=== PATIENT | female | born 1985 | race Caucasian/White ===

== ENCOUNTER 2019-12-03 05:50 | Inpatient (IN) | payer OTHER, SELFPAY ==
[2019-12-03] VITALS (181 sets, daily range): BP systolic 96–157; BP diastolic 60–104; PULSE 63–150; TEMP 36.6–37.3; O2SAT 85–100; BMI 27.6
[2019-12-03 06:40] LABS: Basophils Percent Auto 0.5 % (0.2-1.2); Eosinophils Absolute Auto 0.1 K/mm3 (0-0.3); Eosinophils Percent Auto 1.5 % (0-4.4); Hematocrit 34.2 % (37.0-47.0); Hemoglobin 11.2 g/dL (12.0-15.0); Immature Granulocyte Absolute 0.01 K/mm3 (0.00-0.031); Immature Granulocyte Percent A 0.2 % (0-0.5); Lymphocytes Absolute Auto 1.75 K/mm3 (0.9-3.2); Lymphocytes Percent Auto 26.5 % (18.3-44.2); Mean Corpuscular HGB Conc 32.7 g/dl (32-36); Mean Corpuscular Hemoglobin 28.1 pg (26-34); Mean Corpuscular Volume 85.7 fl (80-100); Monocytes Absolute Auto 0.4 K/mm3 (0.1-0.6); Monocytes Percent Auto 6.5 % (2.6-8.5); Neutrophils Absolute Auto 4.3 K/mm3 (1.3-6.7); Neutrophils Percent Auto 64.8 % (45.5-73.1); Platelet Count Result 193 k/mm3 (150-375); Red Blood Count 3.99 M/mm3 (4.2-5.4); Red Cell Distribution Width 12.5 % (11.5-14.5); White Blood Count 6.6 K/mm3 (4.5-10.0)
[2019-12-03] MEDS: LACTATED RINGERS 1,000 ML 125 ML IV CONT ×4 (06:48→23:47)
[2019-12-03] MEDS: OXYTOCIN 30 UNITS/NS 500 ML 30 UNITS/500 ML BAG 6 UNITS IV CONT (06:49)
--- NOTE | 2019-12-03 06:50 | LDADM ---
This patient, Reyna Milian, was admitted to Labor/Delivery/Recovery 104 on 12/03/19 at 05:50. Plans for labor, pain management and were discussed with patient. Patient/family oriented to hospital policies and general routines including ID bracelet, bed and alarms, visiting hours, pain management, procedures, bathroom and other care routines, personal items, smoking policy, room service/diet and guest tray routines, security routines, and visiting hours. Patient/Family are encouraged to report perceived risks to care and to ask questions if they do not understand what they are told or what they should do. See OBIX for further documentation.
--- NOTE | 2019-12-03 06:55 | PM.IMHP ---
H&P: HPI History of Present Illness Chief complaint: Induction Narrative: Reyna Milian is a 34 yo @ 40.2wks who presents for scheduled induction of labor. She reports pressure, mild contractions/back pains. Good movement. No LOF or VB. Review of Systems Constitutional: Constitutional: Denies chills and Denies fatigue Eyes: Eyes: Denies blurry vision Cardiovascular: Cardiovascular: Denies chest pain and Denies palpitations Respiratory: Respiratory: Denies cough and Denies dyspnea Gastrointestinal: Gastrointestinal: Denies nausea and Denies vomiting Genitourinary: Genitourinary: Denies vaginal discharge Musculoskeletal: Musculoskeletal: Reports back pain Neurologic: Denies headache(s) Psychiatric: Psychiatric: Denies anxiety and Denies depression [facility] Family History Family History Sibling Oral cancer Mother Thyroid cancer Social History Social History Substance use: never Gender identity (if verbalized by the patient): Female Spiritual care concerns: No Meds Home Medications and Allergies Home Medications Medication Instructions Recorded Confirmed Type PNV cmb#95-ferrous fumarate-FA 1 tablet PO DAILY 11/02/19 11/02/19 History [] Allergies Allergy/AdvReac Type Severity Reaction Status Date / Time No Known Allergies Allergy Verified 04/13/19 14:40 Vital Signs Vital Signs - 24 hr 12/03/19 06:23 12/03/19 06:45 Pulse Rate 101 H 86 Blood Pressure 115/85 115/77 Exam Const: General: comfortable and no acute distress Resp: Effort & Inspection: normal respiratory effort Cardio: Rate: regular rate GI: GI Palp: Yes Soft to palpation : Other: FHT's: 130's/ mod ernestina/ + accels/ no decels - cat 1 TOCO: irregular ctx's q5-7min Membranes: intact Cervix: 1-2/-2 Skin: General skin exam: normal color Neuro: Speech: normal speech Extrem: General: normal to inspection Psych: Affect: normal affect H&P: Results Labs Labs: Short CBC 12/03/19 Range/Units 06:34 WBC 6.6 (4.5-10.0) K/mm3 Hgb 11.2 L (12.0-15.0) g/dL Hct 34.2 L (37.0-47.0) % Plt Count 193 (150-375) k/mm3 Assessment and Plan Assessment and plan (1) Encounter for induction of labor: Code(s): Z34.90 - Encounter for supervision of normal , unspecified, unspecified trimester Status: Acute Additional Plan - Admit to L&D - Vitals and labs WNL - Continuous monitoring; FHT category 1 - Pitocin per protocol - Anesthesia PRN pain - GBS negative
--- NOTE | 2019-12-03 07:10 | P.PNAN_ITS ---
Anes - Eval Pre Procedure Procedure: Labor Epidural Date/Time: 12/03/19 07:10 Surgeon: Dr. Carlton Preop Diagnosis: Labor Pain Pre Op Diagnosis: Induction Patient Data Age: 34 Gender: F Height: Weight: Last Vital Signs Pulse 75 12/03/19 07:00 BP 117/75 12/03/19 07:00 Allergies Allergy/AdvReac Type Severity Reaction Status Date / Time No Known Allergies Allergy Verified 04/13/19 14:40 Home Medications Medication Instructions Recorded Confirmed Type PNV cmb#95-ferrous fumarate-FA 1 tablet PO DAILY 11/02/19 11/02/19 History [] Laboratory Tests 12/03/19 12/03/19 06:34 06:34 WBC 6.6 K/mm3 K/mm3 (4.5-10.0) RBC 3.99 M/mm3 L M/mm3 (4.2-5.4) Hgb 11.2 g/dL L g/dL (12.0-15.0) Hct 34.2 % L % (37.0-47.0) MCV 85.7 fl fl (80-100) MCH 28.1 pg pg (26-34) MCHC 32.7 g/dl g/dl (32-36) RDW 12.5 % % (11.5-14.5) Plt Count 193 k/mm3 k/mm3 (150-375) MPV 10.0 fl fl (7.4-10.4) Immature Gran % (Auto) 0.2 % % (0-0.5) Neut % (Auto) 64.8 % % (45.5-73.1) Lymph % (Auto) 26.5 % % (18.3-44.2) [place] % (Auto) 6.5 % % (2.6-8.5) Eos % (Auto) 1.5 % % (0-4.4) Baso % (Auto) 0.5 % % (0.2-1.2) Lymph # (Auto) 1.75 K/mm3 K/mm3 (0.9-3.2) [place] # (Auto) 0.4 K/mm3 K/mm3 (0.1-0.6) Eos # (Auto) 0.1 K/mm3 K/mm3 (0-0.3) Baso # (Auto) 0.0 K/mm3 K/mm3 (0.0-0.1) Abs Immat Gran (auto) 0.01 K/mm3 K/mm3 (0.00-0.031) Absolute Neuts (auto) 4.3 K/mm3 K/mm3 (1.3-6.7) Absolute Nucleated RBC 0.0 K/mm3 K/mm3 (0.0-0.012) Nucleated RBC % 0.0 % % (0.0-0.2) RPR Pending : gestational age (, BUBBA 12/01/19) HCG: positive Patient hx anesthesia problems: none Family hx anesthesia problems: none PMFSH Family History Family History Sibling Oral cancer Mother Thyroid cancer Social History Social History Substance use: never Gender identity (if verbalized by the patient): Female Spiritual care concerns: No Exam Day of Procedure 12/03/19 07:10 Patient weight: normal Heart: regular rate and rhythm Lungs: normal air movement Airway: Mallampati scale class II Neurological: alert and oriented
--- NOTE | 2019-12-03 09:54 | PM.OBPNLAB ---
Pain Control Date/time seen: 12/03/19 09:54 S: No complaints; mild pain O: VSS Cervix: 2.5/70/-3 AROM, clear 0940 FHT's: 130's/ mod ernestina/ + accels/ no decels - cat 1 TOCO: ctx's q2-3min Pit: 16mU A/P: Early IOL Anesthesia PRN pain Continue pitocin per protocol Continuous monitoring; heart rate reassuring
--- NOTE | 2019-12-03 22:25 | PM.OBPNLAB ---
Pain Control Date/time seen: 12/03/19 22:25 S: feeling better since epidural but has had multiple top offs and feeling right sided pain again O: VSS Cervix: 7/70/-1 on my exam; previously called 9cm (initially called 7cm at 1630) FHT's: 130's/ mod ernestina/ + accels/ early decels, occasional variables - cat 2 but overall reassuring IUPC: ctx's q2 min -- ~180-200mvu AROM, clear @ 0940 on 12/03/19 Pit: 24mu A/P: Protracted labor course - head feels asynclytic with mild caput; attempted to be rotated (currently ROP) - Pt w/ IUPC in place and oxytocin infusion; contractions have been inadequate - Has been ruptured on pitocin for 13hrs - Pt has not met criteria for AAP but will soon; pt desires vaginal delivery-- will re-examine in 1-2 hours. If not fully dilated, will proceed with pLTCS. Pt informed of protracted labor course and risks of AAP including distress, hemorrhage, and infection (chorio). Pt agrees with plan. - Anesthesia for pain control
[2019-12-04] VITALS (63 sets, daily range): BP systolic 93–213; BP diastolic 50–138; PULSE 60–113; RESP 10–21; TEMP 36.3–37.4; O2SAT 93–100
--- NOTE | 2019-12-04 00:31 | PM.OBPNLAB ---
Pain Control Date/time seen: 12/04/19 00:31 Pain control: epidural Pelvic Exam Dilation (cm): 7 Effacement (%): 70 station: -1 Amniotic membrane status: Ruptured (since 0940 on 12/03/19) Contractions Monitor mode: Internal Contraction frequency: 2 Contraction pattern: Regular (but not adequate) Status status: Category l Assessment and Plan Pitocin rate (mU/min): 24 Plan: (due to arrest of active phase)
--- NOTE | 2019-12-04 02:08 | PM.OBPRVD ---
OB - Delivery Note Procedure Delivery date: 12/04/19 Procedure: Procedures Operation Date: 12/04/19 00:30 Actual Procedures Side Surgeon p Section Janie Carlton MD Intrapartal events: Prolonged Active Phase Induction method: per pitocin protocol Delivery augmentation: rupture of membranes Delivery monitor: external FHT and internal uterine Route of delivery: Estimated blood loss (mL): 650 Anesthesia type: Epidural Disposition: PACU Complications: None Narrative: Patient was taken operating room where epidural anesthesia was found to be in adequate therefore spinal anesthesia was placed. she was then prepped and draped in the sterile fashion. she received 2 g Ancef and a time-out was performed. a Pfannenstiel skin incision was made and carried down to the underlying fascia using Bovie cautery. the fascia was nicked on either side and midline using Bovie cautery and extended laterally and superiorly. the edges of the fascia were elevated using Reji clamps and the underlying rectus muscles were dissected away, this occurred superiorly and inferiorly. the rectus muscles were then in the midline and the peritoneum was entered bluntly. once adequate exposure was obtained and Luiz retractor was placed within the abdomen. a bladder flap was created and a transverse incision was made on the uterus. the occiput was elevated to the hysterotomy and with gentle pressure the shoulders and body delivered without complications. the infant had spontaneous cry and the mouth and nose were bulb suctioned. the cord was clamped and cut and the infant was handed off to the waiting pediatric team. a segment of cord was collected for cord gases and the remaining cord blood was collected for typing. with Pitocin running and gentle traction on the umbilical cord the placenta delivered without complications. the uterus was then cleared of all clots and debris using a clean moist lap. the hysterotomy was then repaired in a running fashion using 0 Vicryl. bleeding was noted from the right aspect of the hysterotomy therefore a [id number] using 0 Vicryl was placed and good hemostasis was noted. a 2nd layer imbricating suture was then placed using 0 Vicryl and the hysterotomy incision was noted to be hemostatic. uterine massage was performed and good tone was noted. the bilateral adnexa were examined and found to be within normal limits. the gutters were then cleared of all clots and debris using clean laps. the hysterotomy was once again reinspected and noted to be hemostatic. the Luiz retractor was removed from the abdomen. the peritoneum rectus muscles and rectus fascia were examined and made hemostatic with Bovie cautery. the fascia was reapproximated using 0 Vicryl suture in a running fashion. and the subcutaneous tissue was irrigated and then made hemostatic with Bovie cautery. Jone's fascia was then reapproximated using a 2-0 Vicryl in a running fashion. the skin was reapproximated using 4 Monocryl in a subcuticular fashion. the patient tolerated the procedure well. sponge lap needle instrument counts were correct at the end of the procedure and was taken recovery in a stable condition. [place] Baby Date of : 12/04/19 Time of : 01:33 Weeks of gestation at delivery: 40 gender: Male Weight (pounds): 8 Weight (ounces): 7 presentation: vertex position: Left Occiput Transverse Placenta delivery description: Manual Removal cord vessel description: 3 Vessels score one minute: 8 score five minutes: 9
[2019-12-04] MEDS: OXYTOCIN 30 UNITS/NS 500 ML 30 UNITS/500 ML BAG 125 UNITS IV CONT (04:30)
--- NOTE | 2019-12-04 04:36 | OBPPTRN ---
Patient transferred to post room #285 via wheelchair. Support person present. Oriented to unit, room, information board, rooming in, admission packet and security measures. Patient verbalizes understanding. with patient.
[2019-12-04] MEDS: DEXTROSE 5%/0.45% SOD CHL 1,000 ML 125 ML IV CONT (08:41)
--- NOTE | 2019-12-04 09:10 | PC.NURSE ---
Mother called out for assist with feeding, reporting is sleepy and not waking to feed. Demonstrated stimulation techniques to wake infant for feeding, awake with feeding cues noted. Assisted with infant to breast. Reviewed positioning/alignment in cross cradle, holding breast in U hold and guided asymmetrical latch on. Discussed rational fore ach. Infant was able to latch correctly. Infant nursed eagerly, with steady draws and frequent swallowing noted. some pausing noted. Reviewed signs of a correct latch, effective nursing and suck swallow ratio. Infant was able to maintain latch without discomfort to mother. Nipple care reviewed. Instructed mother to call out for RN assistance if she is unable to latch infant for feeding or she has discomfort with nursing. Instructed feeding should be initiated three hours from start of last feeding or if feeding cues are noted before. Mother voiced understanding of information shared. Reviewed infant feeding cues, frequencies, duration of feedings, feeding elimination flow sheet, and signs of adequate intake. Suggested mother stimulate during feeding to keep infant awake and nursing effectively for increased intake and assist in maintaining deep latch.
--- NOTE | 2019-12-04 09:10 | PCDIET ---
Consulted with patient, mother reports infant is sleepy and is concerned is not getting enough to eat. Reviewed signs of adequate intake, and infant is feeding as required,has had required output and weight loss WNL. Reviewed feeding cues, frequencies, duration of feedings, feeding elimination flow sheet, and signs of adequate intake. Demonstrated stimulation techniques to wake for feeding. Assisted with infant to breast. Reviewed positioning/alignment in cross cradle, holding breast in U hold and guided asymmetrical latch on. Discussed rational for each. Infant was able to latch correctly with first attempt. nursed eagerly with steady draws and frequent swallowing for bursts followed with long pausing. Reviewed signs of a correct latch, effective nursing and suck swallow ratio. Infant was able to maintain latch without discomfort to mother. Nipple care reviewed. Suggested to stimulate during entire feeding to keep awake and feeding effectively for increased intake and assist maintaining deep latch. Instructed mother to call out for RN assistance if she is unable to latch infant for feeding or she has discomfort with nursing. Instructed feeding should be initiated three hours from start of last feeding or if feeding cues are noted before. Mother voiced understanding of information shared.
[2019-12-04 09:47] LABS: Rapid Plasma Reagin Non-Reactive (NonReactive)
[2019-12-04] MEDS: DOCUSATE SODIUM 100 MG CAPSULE PO ×2 (11:41→16:06)
[2019-12-04] MEDS: MULTIVIT/MIN/PREN/FOL AC/IRON TABLET 1 TAB PO (11:41)
[2019-12-04] MEDS: KETOROLAC 30 MG/ML VIAL (*BKC) IV PUSH ×2 (11:42→17:49)
[2019-12-05 05:41] LABS: Basophils Percent Auto 0.3 % (0.2-1.2); Eosinophils Absolute Auto 0.1 K/mm3 (0-0.3); Eosinophils Percent Auto 1.1 % (0-4.4); Hematocrit 24.2 % (37.0-47.0); Hemoglobin 7.7 g/dL (12.0-15.0); Immature Granulocyte Absolute 0.06 K/mm3 (0.00-0.031); Immature Granulocyte Percent A 0.6 % (0-0.5); Lymphocytes Absolute Auto 1.72 K/mm3 (0.9-3.2); Mean Corpuscular HGB Conc 31.8 g/dl (32-36); Mean Corpuscular Hemoglobin 28.3 pg (26-34); Mean Platelet Volume 10.4 fl (7.4-10.4); Monocytes Absolute Auto 0.8 K/mm3 (0.1-0.6); Monocytes Percent Auto 7.3 % (2.6-8.5); Neutrophils Percent Auto 74.7 % (45.5-73.1); Platelet Count Result 160 k/mm3 (150-375); Red Blood Count 2.72 M/mm3 (4.2-5.4); Red Cell Distribution Width 12.9 % (11.5-14.5); White Blood Count 10.7 K/mm3 (4.5-10.0)
[2019-12-05] MEDS: POLYSACCHARIDE IRON COMPLEX 150 MG CAPSULE PO ×2 (08:14→16:51)
[2019-12-05] MEDS: MULTIVIT/MIN/PREN/FOL AC/IRON TABLET 1 TAB PO (08:14)
[2019-12-05] MEDS: DOCUSATE SODIUM 100 MG CAPSULE PO ×2 (08:14→16:51)
[2019-12-05] MEDS: IBUPROFEN 600 MG TABLET PO ×2 (08:15→16:51)
[2019-12-05 08:20] VITALS: BP 105/74; PULSE 89; RESP 16; TEMP 36.9; O2SAT 99
--- NOTE | 2019-12-05 08:22 | P.PNAN_ITS ---
Anes-Prog Note L&D Date/Time: 12/05/19 08:22 Comfortable throughout: labor and section Neuraxial method: spinal (pt had epidural during labor that only provided one- sided relief.pt stated she received a spinal for the c/s that provided complete relief for surgery.) Epidural/Spinal procedure site: clean & non-tender Neuro status: Neuro function grossly intact. Cardiovascular status: normal Respiratory status: normal Airway patency: baseline Mental status: baseline Post-Op hydration status: normal Vital Signs: Last Vital Signs Temp 36.8 C 12/04/19 21:00 Pulse 74 12/04/19 21:00 Resp 16 12/04/19 21:00 BP 111/69 12/04/19 21:00 Pulse Ox 100 12/04/19 21:00 I/O: Intake & Output 12/04/19 12/05/19 12/05/19 23:59 07:59 15:59 Output Total 400 Balance -400 Post-procedural complaints: none Patient feedback: Patient satisfied with anesthetic care.
--- NOTE | 2019-12-05 08:24 | WPDANLDNPN2 ---
Anes-Prog Note L&D-Neuraxial Date/Time: 12/05/19 08:24 Neuraxial medications: intrathecal PF morphine Opiod-related complaints: none Patient feedback: Patient satisfied with post-operative pain management.
--- NOTE | 2019-12-05 13:29 | PM.OBPNVD ---
OB - PN: Subj Subjective Date/time seen: 12/05/19 13:29 Reyna is a 34yo now P1001 s/p pLTCS 2/2 AAP, POD#1 Today, Reyna states she is feeling well. Her pain is controlled with pain meds. She is tolerating regular diet w/o issue. She is voiding and passing flatus. She is ambulating w/o s/sx of anemia. She is breast feeding. She would like her son to be circumcised. OB - PN: Obj Data Labs CBC & Chem 7: 12/05/19 04:21 Labs: Laboratory Results - last 24 hr 12/05/19 04:21 WBC 10.7 H RBC 2.72 L Hgb 7.7 L D Hct 24.2 L MCV 89.0 MCH 28.3 MCHC 31.8 L RDW 12.9 Plt Count 160 MPV 10.4 Immature Gran % (Auto) 0.6 H Neut % (Auto) 74.7 H Lymph % (Auto) 16.0 L [place] % (Auto) 7.3 Eos % (Auto) 1.1 Baso % (Auto) 0.3 Lymph # (Auto) 1.72 [place] # (Auto) 0.8 H Eos # (Auto) 0.1 Baso # (Auto) 0.0 Abs Immat Gran (auto) 0.06 H Absolute Neuts (auto) 8.0 H Absolute Nucleated RBC 0.0 Nucleated RBC % 0.0 OB - PN A/P Assessment and Plan (1) S/P section: Code(s): Z98.891 - History of uterine scar from previous surgery Status: Acute (2) Acute anemia: Code(s): D64.9 - Anemia, unspecified Status: Acute Plan day: 1 Plan: routine care Comments: - meeting all milestones - vitals stable; pt w/o symptoms of anemia-- acute anemia from blood loss during c/s. continue iron - likely discharge home tomorrow - s/p son's circumcision Time Spent With Patient Time: Total time spent is greater than 50% in coordination of care (as documented) at patient's floor/unit and/or counseling patient: Review of Systems Constitutional: Constitutional: Denies body ache(s) and Denies chills Cardiovascular: Cardiovascular: Denies rapid heart rate Respiratory: Respiratory: Denies cough and Denies dyspnea Gastrointestinal: Gastrointestinal: Denies nausea and Denies vomiting Genitourinary: Genitourinary: Reports pelvic pain Neurologic: Denies headache(s) Exam Const: General: comfortable, alert and awake Orientation/consciousness: patient oriented x3 Resp: Effort & Inspection: normal respiratory effort Auscultation: clear to auscultation bilaterally Cardio: Rate: regular rate GI: Auscultation: normal bowel sounds Other: non-distended, soft, appropriately tender : Other: Pfannenstiel incision c/d/i covered with clean dressing (small amount of old blood located centrally). Fundus firm below umbilicus Psych: Appearance: grossly normal Affect: normal affect Attitude: cooperative
--- NOTE | 2019-12-05 16:20 | PC.NURSE ---
Upon entering mother has to breast using correct positioning/alignment in cross cradle, holding breast in U hold and asymmetrical latch on. Infant was latched correctly. nursed eagerly, with steady draws and frequent swallowing noted. Reviewed signs of a correct latch, effective nursing and suck swallow ratio. Infant was able to maintain latch without discomfort to mother. Nipple care reviewed. Mother stimulated when pausing noted. Instructed mother to call out for RN assistance if she is unable to latch infant for feeding or she has discomfort with nursing. Instructed feeding should be initiated three hours from start of last feeding or if feeding cues are noted before. Mother voiced understanding of information shared.
[2019-12-05 20:00] VITALS: BP 110/73; PULSE 88; RESP 16; TEMP 37.1; O2SAT 98
[2019-12-06 08:35] VITALS: BP 131/81; PULSE 93; RESP 18; TEMP 37.2; O2SAT 100
[2019-12-06] MEDS: DOCUSATE SODIUM 100 MG CAPSULE PO (09:08)
[2019-12-06] MEDS: IBUPROFEN 600 MG TABLET PO (09:08)
[2019-12-06] MEDS: MULTIVIT/MIN/PREN/FOL AC/IRON TABLET 1 TAB PO (09:08)
[2019-12-06] MEDS: BISACODYL 10 MG SUPPOSITORY RECTAL (09:08)
[2019-12-06] MEDS: POLYSACCHARIDE IRON COMPLEX 150 MG CAPSULE PO (09:08)
--- NOTE | 2019-12-06 10:10 | PC.NURSE ---
Observed mother is able to independently latch with appropriate positioning/alignment. She denies any nipple discomfort, is feeding as required and waking infant to feed if needed. has had at least 8 effective feedings in the past 24 hours, and is currently meeting outcomes for weight, output, jaundice and feeding frequencies. Mother states she feels confident to continue effective at home. Mother is concerned is not above required # for output and will freq. continue to root after a 50 minute feeding. Discussed supplementation if mother should choose, advised to breastfeed first and pace 15-20 mls if she feels infant is not satisfied or has less than required output. Reviewed transition to breast milk, signs of adequate intake, and engorgement/relief. Instructed to call ICP if intake/output less than required. Reviewed regular medications mother is taking. Information provided per [facility]. Reviewed community resources on the [facility] website and in the Mom/Baby guide. Information on outpatient services provided. Mother has no further questions at this time.
[2019-12-06] MEDS: polyethylene glycoL 3350 17 GM POWD.PACK PO (12:30)
[2019-12-07 14:12] VITALS: BP 124/85; PULSE 98; RESP 16; TEMP 37.2; O2SAT 98
--- NOTE | 2019-12-17 11:09 | PM.OBDSVD ---
DS: Admitting Diagnosis Admitting Diagnosis Admitting Diagnosis: Encounter for supervision of normal , unspecified, third trimester DS: Discharge Diagnosis Discharge Diagnosis (1) Arrested active phase of labor: Code(s): O62.1 - Secondary uterine inertia Status: Acute (2) S/P section: Code(s): Z98.891 - History of uterine scar from previous surgery Status: Acute OB - DS: Summary OB Procedures : None OB Procedures Intrapartum: OB Procedures: : None Peripartum Data Infant Delivery Method: Section Procedures: Procedures Operation Date: 12/04/19 00:30 Actual Procedures Side Surgeon p Section Janie Carlton MD complications: none [place] 1: Gender: Male Disposition of : home Status at Discharge Functional status at discharge: independent ambulation Time Spent with Patient Time attestation: Total time spent providing and/or coordinating discharge services: Exam Const: General: comfortable, no acute distress, alert and awake Orientation/consciousness: patient oriented x3 Resp: Effort & Inspection: normal respiratory effort Auscultation: clear to auscultation bilaterally Cardio: Rate: regular rate GI: Inspection: non-distended GI Palp: Yes Soft to palpation and No Tenderness to palpation present (GI) Auscultation: normal bowel sounds Other: pfannenstiel incision covered with clean dressing Psych: Appearance: grossly normal Affect: normal affect Attitude: cooperative Judgement: Good judgement present (Psych) Discharge Plan Discharge Attending physician on discharge: Janie Carlton Discharging Clinician: Janie Carlton Anticipated Discharge Date/Time: 12/06/19 16:00 Patient Disposition: Home, Self-Care Activity: pelvic rest Diet: regular Wound Care Instructions: incision open to air Discharge Instructions: Education: Mom and Baby Guide Given to: Mother Follow-Up: Call your delivering provider's office for an appointment to be seen in: 4 Weeks Mom and baby should come to the [facility] for the follow-up appointment. Appointment Date/Time: December 07, 2019 at 2:30 pm What to expect at your follow-up visit: Blood Pressure Check Physical Assessment Call [phone] if you are unable to keep your appointment time. BREAST CARE: 1. Wear a snug supportive bra. 2. For engorgement discomfort: Breast Feeding: A. Apply warm moist washcloths B. Express milk as needed to relieve engorgement C. Wear loose clothing Bottle Feeding: A. May apply ice packs 3. For sore nipples: A. Identify correct latch-on B. Apply warm moist washcloths before and after nursing C. Air dry nipples after nursing D. May apply Lansinoh cream to nipples ABDOMINAL INCISION: (if applicable) 1. Allow incision to air dry 2. Do NOT use lotions for powders on your incision 3. When showering, allow soap and water to run over the incision, but do not wash incision EPISIOTOMY/PERINEAL CARE: 1. Until bleeding stops, use your darian bottle after urinating 2. Change your pad frequently throughout the day 3. You may take sitz baths several times a day (fill your bathtub with warm water and soak for 20 minutes.) Do NOT bathe in the water 4. No tub baths until seen by your physician - You may shower ACTIVITY: 1. Rest as much as possible. 2. Do not exercise or lift anything heavier than your baby (such as laundry or other children.) 3. Avoid stairs or driving as much as possible. 4. Do not put anything into the vagina. No douching, tampons, or sexual activity until seen by physician. NOTIFY PHYSICIAN IF YOU HAVE ANY QUESTIONS OR IF ANY OF THE FOLLOWING SYMPTOMS OCCUR: 1. If your episiotomy or incision becomes red, swollen, or more painful than what you have experienced in the hosp
== END 2019-12-06 13:47 | disposition home or self-care (01) | DRG 787 ==
LOC: ANHLDR 12-04 00:42 → ANHOB2 12-04 05:00
PROVIDERS: Admitting Provider Obstetrics & Gynecology; PCP Nurse Practitioner Adult Health; Visit Provider Obstetrics & Gynecology
PROC: 10D00Z1 Extraction of Products of Conception, Low, Open Approach (ICD-10-PCS; CPT 59514; principal; 2019-12-04 00:30)
DX: O99.02 Anemia complicating childbirth (principal); D62 Acute posthemorrhagic anemia; Z37.0 Single live birth; Z3A.40 40 weeks gestation of pregnancy
CPT/HCPCS: 36415; 85025; 86592; 86850; 86900; 86901; A9270; J0131; J0690; J1885; J2274; J2370; J2405; J2590; J2795; J3010; J7120

== ENCOUNTER 2021-06-24 11:44 | Emergency (ER) | payer BC, SELFPAY ==
--- NOTE | ~2021-06-24 | US_ITS ---
EXAMINATION: US OB <= 14 weeks fetus EXAM DATE: 06/24/2021 13:04 INDICATION: Lower abd cramping, vaginal bleeding, 10 weeks . 1st trimester. TECHNIQUE: Pelvic obstetrical transabdominal sonogram was performed by a technologist. There are mu ltiple grayscale and Doppler images available for interpretation. There are no earlier studies of th is gestation for comparison. FINDINGS: Uterus measures 11.2 x 9.4 x 6.8 cm. There is intrauterine gestation sac. pole with heart rate confirmed at 166 beats per minute. The 3.6 cm crown-rump length corresponds to estimated gestational age by ultrasound of 10 weeks 4 days, estimated date of confinement 01/16/2022. There is no sonographic evidence of subchorionic hemorrhage. Ovaries not identified. IMPRESSION: Live intrauterine gestation, age by ultrasound 10 weeks 4 days. Reviewed, dictated and finalized at location A. [employer]
[2021-06-24 11:48] VITALS: BP 126/86; PULSE 85; RESP 22; TEMP 36.8; O2SAT 100
[2021-06-24 12:16] LABS: Basophils Percent Auto 0.5 % (0.2-1.2); Eosinophils Absolute Auto 0.2 K/mm3 (0-0.3); Eosinophils Percent Auto 2.2 % (0-4.4); Hematocrit 45.1 % (37.0-47.0); Hemoglobin 15.3 g/dL (12.0-15.0); Immature Granulocyte Absolute 0.02 K/mm3 (0.00-0.031); Immature Granulocyte Percent A 0.2 % (0-0.5); Lymphocytes Absolute Auto 2.21 K/mm3 (0.9-3.2); Lymphocytes Percent Auto 27.6 % (18.3-44.2); Mean Corpuscular HGB Conc 33.9 g/dl (32-36); Mean Corpuscular Hemoglobin 29.8 pg (26-34); Mean Corpuscular Volume 87.7 fl (80-100); Mean Platelet Volume 9.8 fl (7.4-10.4); Monocytes Absolute Auto 0.4 K/mm3 (0.1-0.6); Monocytes Percent Auto 5.4 % (2.6-8.5); Neutrophils Absolute Auto 5.1 K/mm3 (1.3-6.7); Neutrophils Percent Auto 64.1 % (45.5-73.1); Platelet Count Result 291 k/mm3 (150-375); Red Blood Count 5.14 M/mm3 (4.2-5.4)
--- NOTE | 2021-06-24 12:33 | ED.FEMALEGU ---
HPI - Female Genitourinary General Chief complaint: Vaginal Bleeding Stated complaint: Vaginal bleed Time Seen by Provider: 06/24/21 12:10 Source: patient Mode of arrival: ambulatory Limitations: no limitations History of Present Illness HPI Narrative: Patient is a 36-year-old female, at 10 weeks complaining of vaginal spotting that started this morning. Patient states that she was having lower abdominal cramping last night. Patient denies any chest pain, shortness of breath, dysuria, or vaginal discharge. Related Data Home Medications Medication Instructions Recorded Confirmed PNV cmb#95-ferrous fumarate-FA 1 tablet PO DAILY 11/02/19 11/02/19 [] Allergies Allergy/AdvReac Type Severity Reaction Status Date / Time No Known Allergies Allergy Verified 06/24/21 12:02 Review of Systems Review of Systems: All systems reviewed & are unremarkable except as noted in HPI and below Constitutional: Constitutional: Denies body ache(s), Denies chills, Denies excessive sweating, Denies fatigue, Denies fever(s), Denies headache(s), Denies lethargy, Denies malaise, Denies weakness and Denies weight loss Eyes: Eyes: Denies blurry vision, Denies change in vision and Denies loss of vision ENT: Denies dizziness, Denies ear discharge, Denies headache(s), Denies lip swelling, Denies epistaxis, Denies nasal congestion, Denies neck pain, Denies throat swelling and Denies tongue swelling Cardiovascular: Cardiovascular: Denies chest pain, Denies chest pain at rest, Denies chest pain with activity, Denies diaphoresis, Denies rapid heart rate, Denies edema, Denies irregular heart rhythm, Denies lightheadedness, Denies palpitations, Denies dyspnea and Denies dyspnea on exertion Respiratory: Respiratory: Denies chest congestion, Denies cough, Denies hemoptysis, Denies dyspnea and Denies dyspnea on exertion Gastrointestinal: Gastrointestinal: Denies abdominal pain, Denies melena, Denies hematochezia, Denies diarrhea, Denies nausea, Denies vomiting and Denies hematemesis Musculoskeletal: Musculoskeletal: Denies abnormal gait, Denies deformity, Denies joint swelling, Denies limited range of motion, Denies neck pain and Denies numbness Neurologic: Denies Abnormal speech present, Denies abnormal gait, Denies confusion, Denies dizziness, Denies headache(s), Denies focal weakness, Denies loss of vision, Denies numbness, Denies Other visual disturbances, Denies Sensory deficit (Neuro) and Denies weakness Psychiatric: Psychiatric: Denies confusion, Denies depression, Denies auditory hallucinations, Denies homicidal ideation and Denies suicidal ideation Endocrine: Endocrine: Denies cold intolerance, Denies excessive sweating, Denies fatigue, Denies heat intolerance and Denies palpitations Hematologic/Lymphatic: Hematologic/Lymphatic: Denies easy bleeding and Denies easy bruising Allergic/Immunologic: Allergic/Immunologic: Denies lip swelling, Denies throat swelling and Denies tongue swelling PMFSH Family History Family History Sibling Oral cancer Mother Thyroid cancer Social History Social History Smoking status: Never smoker Second hand tobacco smoke exposure: No Substance use: never Gender identity (if verbalized by the patient): Female Spiritual care concerns: No Comments Past medical history: None Exam Const: General: cooperative, healthy appearing, comfortable, no acute distress, well developed, alert and awake; No confusion Orientation/consciousness: oriented to person, oriented to place, oriented to time, patient oriented x3 and No confusion Limitations: no limitations HENMT: Head: normal to inspection, normocephalic and atraumatic Ears: hearing grossly normal bilaterally, TM normal on the right and TM normal on the left General nose exam: Normal external nose present, Normal nares present and No steven
[2021-06-24 13:20] VITALS: BP 128/84; PULSE 97; RESP 16; O2SAT 98
[2021-06-24 13:38] LABS: Alanine Aminotransferase 15 U/L (4-35); Albumin Level 5.1 g/dL (3.5-5.1); Alkaline Phosphatase 65 U/L (38-126); Anion Gap 14 mmol/L (8-16); Aspartate Amino Transferase 26 U/L (14-36); Bilirubin,Total 0.5 mg/dL (0.2-1.3); Blood Urea Nitrogen 6 mg/dL (7-17); Calcium 10.2 mg/dL (8.4-10.2); Carbon Dioxide 20 mmol/L (22-30); Chloride 104 mmol/L (98-107); Estimated CRCL calculation 126 ml/min; Estimated Glomerular Filt Rate > 60; Glucose 93 mg/dL (65-110); Potassium 3.7 mmol/L (3.4-5.0); Sodium 138 mmol/L (137-145)
[2021-06-24 13:49] LABS: Add Urine Microscopic? YES; Appearance Urine Cloudy (Clear); Bacteria Urine Trace /hpf; Bilirubin Urine Negative (Negative); Blood Urine 3+ (Negative); Color Urine Yellow (Yellow); Glucose Urine UA Negative (Negative); Ketones Urine 1+ mg/dL (Negative); Leukocyte Esterase Ur Negative LEU/UL (Negative); Mucus Urine Rare /lpf; Nitrate Urine Negative (Negative); Protein Urine Negative (Negative); RBC Urine 21-50 /hpf (0-2); Specific Grav Ur 1.012 (1.001-1.035); Squamous Epithelial Cell Urine Many /hpf (Few); Urobilinogen Urine Negative mg/dL (<2.0); WBC Urine 0-3 /hpf
[2021-06-24 15:35] VITALS: BP 118/87; PULSE 78; RESP 18; O2SAT 100
== END 2021-06-24 15:36 | disposition home or self-care (01) ==
PROVIDERS: Emergency Provider Emergency Medicine; PCP Nurse Practitioner Adult Health
DX: O20.0 Threatened abortion (principal)
CPT/HCPCS: 36415; 76801; 80053; 81001; 81025; 84702; 85025; 85461; 99284

== ENCOUNTER 2021-08-26 13:49 | Outpatient (CLI) | payer BC, SELFPAY ==
[2021-08-26 14:20] LABS: Basophils Percent Auto 0.4 % (0.2-1.2); Eosinophils Absolute Auto 0.2 K/mm3 (0-0.3); Eosinophils Percent Auto 2.5 % (0-4.4); Hematocrit 37.3 % (37.0-47.0); Hemoglobin 12.4 g/dL (12.0-15.0); Immature Granulocyte Absolute 0.03 K/mm3 (0.00-0.031); Immature Granulocyte Percent A 0.4 % (0-0.5); Lymphocytes Absolute Auto 1.69 K/mm3 (0.9-3.2); Lymphocytes Percent Auto 21.5 % (18.3-44.2); Mean Corpuscular HGB Conc 33.2 g/dl (32-36); Mean Corpuscular Hemoglobin 30.5 pg (26-34); Mean Corpuscular Volume 91.6 fl (80-100); Mean Platelet Volume 9.7 fl (7.4-10.4); Monocytes Absolute Auto 0.4 K/mm3 (0.1-0.6); Monocytes Percent Auto 5.3 % (2.6-8.5); Neutrophils Absolute Auto 5.5 K/mm3 (1.3-6.7); Neutrophils Percent Auto 69.9 % (45.5-73.1); Platelet Count Result 269 k/mm3 (150-375); Red Blood Count 4.07 M/mm3 (4.2-5.4); Red Cell Distribution Width 13.6 % (11.5-14.5); White Blood Count 7.9 K/mm3 (4.5-10.0)
[2021-08-26 14:26] LABS: Creatinine Urine 106.5 mg/dL
[2021-08-26 14:31] LABS: Alanine Aminotransferase 9 U/L (4-35); Albumin Level 3.8 g/dL (3.5-5.1); Alkaline Phosphatase 51 U/L (38-126); Anion Gap 5 mmol/L (8-16); Aspartate Amino Transferase 21 U/L (14-36); Bilirubin,Total 0.3 mg/dL (0.2-1.3); Blood Urea Nitrogen 7 mg/dL (7-17); Calcium 8.8 mg/dL (8.4-10.2); Carbon Dioxide 23 mmol/L (22-30); Chloride 108 mmol/L (98-107); Estimated Glomerular Filt Rate > 60; Glucose 90 mg/dL (65-110); Lactate Dehydrogenase 266 U/L (313-618); Potassium 4.1 mmol/L (3.4-5.0); Sodium 136 mmol/L (137-145); Uric Acid 2.9 mg/dL (2.5-7.5)
[2021-08-26 21:31] LABS: Total Protein Urine Random < 5 mg/dL
== END 2021-08-26 13:50 | disposition home or self-care (01) ==
PROVIDERS: PCP Nurse Practitioner Adult Health; Visit Provider Obstetrics & Gynecology
DX: R10.11 Right upper quadrant pain (principal)
CPT/HCPCS: 36415; 80053; 81002; 81050; 82570; 83615; 84156; 84550; 85025

== ENCOUNTER 2021-12-29 08:38 | Outpatient (RCR) | payer BC, SELFPAY ==
--- NOTE | ~2021-12-29 | US_ITS ---
EXAMINATION: US OB BPP wo non-stress DATE: 12/29/2021 11:35 INDICATION: Decreased movements. Assess biophysical profile and amniotic fluid index during thi rd trimester of . TECHNIQUE: Real-time pelvic ultrasound was performed. The interpreting radiologist was not present fo r the study. COMPARISON: None. FINDINGS: There is a single living fetus in vertex presentation. The placenta is posterior. heart rate i s 137 beats per minute (bpm). Amniotic fluid index measures 23.0 cm which is normal. (5th%-95%: 7.5-2 4.4 cm at T7 weeks estimated gestational age) Biophysical profile performed by the technologist: breathing (30 sec sustained breathing in 30 minutes): 2 out of 2 movement (3 gross body movements in 30 minutes): 2 out of 2 tone (one episode of bbzgnfp-nhmfsvmvk-ignlnbj limb movement): 2 out of 2 Amniotic fluid pocket (2 cm): 2 out of 2 Total score: 8 out of 8 IMPRESSION: 1. Single living fetus in vertex presentation with heart rate of 137 bpm. 2. Biophysical profile 8 out of 8. 3. Normal amniotic fluid index of 23.0 cm. Reviewed, dictated and finalized at location A.
[2021-12-29 09:11] VITALS: BP 117/82; PULSE 103
--- NOTE | 2021-12-29 09:30 | PC.NURSE ---
Rc'vd call from after pt had left. Stating she wants BPP and DEJUAN also. Called pt's cell and left voicemail.
--- NOTE | 2021-12-29 10:00 | PC.NURSE ---
Pt returned call and states she will come back for ultrasound soon.
--- NOTE | 2021-12-29 11:00 | PC.NURSE ---
Pt returned, taken down to ultrasound via wheelchair at this time.
--- NOTE | 2021-12-29 11:36 | PC.NURSE ---
Pt returned to room via wheelchair. BPP 01/18, awaiting DEJUAN results before letting pt go home.
--- NOTE | 2021-12-29 11:48 | PC.NURSE ---
DEJUAN=23, pt sent home with precautions.
== END 2022-01-22 14:58 | disposition home or self-care (01) ==
LOC: ANHOBOP 08:38
PROVIDERS: PCP Nurse Practitioner Adult Health; Visit Provider Obstetrics & Gynecology
DX: O36.8130 Decreased fetal movements, third trimester, not applicable or unspecified (principal); Z3A.38 38 weeks gestation of pregnancy
CPT/HCPCS: 59025; 76819

== ENCOUNTER 2022-01-09 09:39 | Outpatient (CLI) | payer BC, SELFPAY ==
[2022-01-09 10:03] LABS: Hematocrit 33.9 % (37.0-47.0); Hemoglobin 10.5 g/dL (12.0-15.0)
[2022-01-11 12:01] LABS: Rapid Plasma Reagin Non-Reactive (NonReactive)
== END 2022-01-09 09:40 | disposition home or self-care (01) ==
PROVIDERS: PCP Nurse Practitioner Adult Health; Visit Provider Obstetrics & Gynecology
DX: Z34.93 Encounter for supervision of normal pregnancy, unspecified, third trimester (principal); Z3A.00 Weeks of gestation of pregnancy not specified
CPT/HCPCS: 36415; 85014; 85018; 86592; 86850; 86900; 86901

== ENCOUNTER 2022-01-11 05:21 | Inpatient (IN) | payer BC, SELFPAY ==
[2022-01-11] VITALS (31 sets, daily range): BP systolic 96–134; BP diastolic 42–87; PULSE 67–108; RESP 12–19; TEMP 36.3–37.2; O2SAT 95–99; BMI 34.4
--- NOTE | 2022-01-11 05:21 | LDADM ---
This patient, Reyna Milian, was admitted to Labor/Delivery/Recovery 120 on 01/11/22 at 05:21. Plans for labor, pain management and were discussed with patient. Patient/family oriented to hospital policies and general routines including ID bracelet, bed and alarms, visiting hours, pain management, procedures, bathroom and other care routines, personal items, smoking policy, room service/diet and guest tray routines, security routines, and visiting hours. Patient/Family are encouraged to report perceived risks to care and to ask questions if they do not understand what they are told or what they should do. See OBIX for further documentation.
--- OUTSIDE RECORDS SUMMARY | 2022-01-11 05:27 | XMS_ITS ---
:1985 Author Care Team Providers Name Role Phone KIESHA PRECIADO NP Primary Care Provider Unavailable Allergies Code Code System Name Reaction Severity Status Onset NKDA ? Medications Name Status Start Date Stop Date ? ? cephalexin 500 mg capsule Completed ? 2019 TAKE 1 CAPSULE BY MOUTH EVERY 6 HOURS FOR 7 DAYS ferrous sulfate 325 mg (65 mg iron) tablet Active ? Not available TAKE 1 TABLET BY MOUTH EVERY DAY FOR 30 DAYS mupirocin 2 % topical ointment Completed ? 06/15/2019 APPLY A SMALL AMOUNT TO THE AFFECTED AREA 3 TIMES A DAY naltrexone 50 mg tablet Completed ? 03/29/20 19 Take 1 tablet every day by oral route for 30 days. Reglan 10 mg tablet Completed ? 06/26/2019 Take 1 tablet 3 times a day by oral route as needed for 30 days . sertraline 100 mg tablet Completed ? 019 Take 1 tablet every day by oral route for 90 days. sertraline 50 mg tablet Active ? Not dorinda jaquez TAKE 1 TABLET BY MOUTH EVERY DAY Notes: otc Problems Name Status Onset Date Source ? Anxiety Active 01/31/2019 ? Alcoholism Active 01/31/2019 ? Unknown 04/09/2019 ? Anemia Active 02/18/2020 ? Procedures Date Name Performed by ? 12/04/2019 Section Information not dorinda jaquez Notes: primary c/s failure to dilate ? Photorefractive Keratoplasty Information not available 04/04/2019 US, Obstetric, Transvaginal In-House Res ults For Internal Use Onl y
[2022-01-11] MEDS: LACTATED RINGERS 1,000 ML 125 ML IV CONT ×3 (05:53→08:29)
[2022-01-11 06:02] LABS: Hematocrit 33.9 % (37.0-47.0); Hemoglobin 10.5 g/dL (12.0-15.0); Mean Corpuscular Hemoglobin 25.3 pg (26-34); Mean Corpuscular Volume 81.7 fl (80-100); Mean Platelet Volume 10.2 fl (7.4-10.4); Platelet Count Result 265 k/mm3 (150-375); Red Blood Count 4.15 M/mm3 (4.2-5.4); Red Cell Distribution Width 13.9 % (11.5-14.5); White Blood Count 9.7 K/mm3 (4.5-10.0)
--- NOTE | 2022-01-11 06:54 | WPDANESEPPF ---
Anes - Initial Pre Proc Eval Procedure: Operation Date: 01/11/22 07:30 Proposed Procedures p Repeat Section - Janie Carlton MD Date/Time: 01/11/22 06:54 Surgeon: Janie Carlton MD Pre Op Diagnosis: C/S Patient Data Age: 36 Gender: F Height: 1.63 m Weight: 91 kg Last Vital Signs Pulse 100 01/11/22 06:46 BP 134/85 01/11/22 06:46 O2 Del Method Room Air 01/11/22 05:43 Allergies Allergy/AdvReac Type Severity Reaction Status Date / Time No Known Allergies Allergy Verified 12/29/21 07:58 Home Medications Medication Instructions Recorded Confirmed Type vit no.95-ferrous 1 tablet PO DAILY 11/02/19 01/11/22 History fumarate 28 mg-folic acid 800 mcg tablet () aspirin 81 mg tablet,delayed 81 mg PO DAILY #90 tabs 07/02/21 01/11/22 Rx release (Adult Aspirin Regimen) Laboratory Tests 01/11/22 05:47 WBC 9.7 K/mm3 K/mm3 (4.5-10.0) RBC 4.15 M/mm3 L M/mm3 (4.2-5.4) Hgb 10.5 g/dL L g/dL (12.0-15.0) Hct 33.9 % L % (37.0-47.0) MCV 81.7 fl fl (80-100) MCH 25.3 pg L pg (26-34) MCHC 31.0 g/dl L g/dl (32-36) RDW 13.9 % % (11.5-14.5) Plt Count 265 k/mm3 k/mm3 (150-375) MPV 10.2 fl fl (7.4-10.4) Patient hx anesthesia problems: none Family hx anesthesia problems: none Results Review: All pre-operative results and documents have been reviewed as part of the pre-operative evaluation. 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 Gender identity (if verbalized by the patient): Female Sexual Orientation (if Verbalized by the Patient): Straight or Heterosexual Spiritual care concerns: No Anes - Eval Final PreProcedure Day of Procedure 01/11/22 06:54 Patient weight: obese Heart: regular rate and rhythm Lungs: clear to auscultation and normal air movement Airway: Mallampati scale class II Neurological: alert and oriented Last oral intake: >/= 8 hours ASA classification: II Emergent: no Anesthetic plan: proceed Anesthesia type and monitoring: regional spinal Results Review: All pre-operative results and documents have been reviewed as part of the pre-operative evaluation. Informed Consent: The patient's anesthetic plan and its attendant risks and benefits were discussed with the patient/family/POA. Questions were solicited and answers provided to the satisfaction of the patient/family/POA.
--- NOTE | 2022-01-11 07:09 | P.HP_ITS ---
H&P: HPI History of Present Illness Date/Time: 01/11/22 07:05 Princess is a 36yo @ 39.2wks (BUBBA 01/16/22) who presents for repeat c- section. She has had regular and uncomplicated care. She reports good movements. No ctx, vb, lof. She does have a sinus infection. 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 Complaint: repeat Review of Systems Review of Systems: All systems reviewed & are unremarkable except as noted in HPI and below PMFSH Past Medical History Medical History Anxiety Surgical History Surgical History Delivery by section (~12/04/19) History of photorefractive keratectomy Family History Family History Sibling Oral cancer Hypertension Mother Thyroid cancer Pancreatic mass Father Brain cancer Social History Social History Smoking status: Never smoker Second hand tobacco smoke exposure: No Alcohol intake: never Substance use: never 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 Gender identity (if verbalized by the patient): Female Sexual Orientation (if Verbalized by the Patient): Straight or Heterosexual Spiritual care concerns: No Meds Home Medications and Allergies Home Medications Medication Instructions Recorded Confirmed Type vit no.95-ferrous 1 tablet PO DAILY 11/02/19 01/11/22 History fumarate 28 mg-folic acid 800 mcg tablet () aspirin 81 mg tablet,delayed 81 mg PO DAILY #90 tabs 07/02/21 01/11/22 Rx release (Adult Aspirin Regimen) Allergies Allergy/AdvReac Type Severity Reaction Status Date / Time No Known Allergies Allergy Verified 12/29/21 07:58 Exam Const: General: cooperative, healthy appearing, comfortable and no acute distress Resp: Effort & Inspection: normal respiratory effort Cardio: Rate: regular rate GI: Inspection: normal to inspection GI Palp: No abdominal tenderness and Yes Soft to palpation : Other: FHTs: 130's/mod ernestina/ + accels/ no decels - cat 1 TOCO: irregular ctx's Presentation: cephalic Membranes: intact, GBS neg Skin: General skin exam: normal color Neuro: General: patient oriented x3 Extrem: General: normal to inspection Psych: Appearance: grossly normal Affect: normal affect Attitude: cooperative Assessment and Plan Assessment and plan (1) History of section: Code(s): Z98.891 - History of uterine scar from previous surgery Status: Acute (2) Advanced maternal age (AMA) in : Status: Acute Plan - H/o previous for repeat, declines BTL - Risks and benefits explained in detail and questions answered - Ancef 2g for abx ppx
--- NOTE | 2022-01-11 07:09 | WPDHPUPDATE1 ---
History and Physical Update Update Date/Time: 01/11/22 07:09 History and Physical has been reviewed, including an updated exam of the patient. There are NO changes in the patient's condition. Risks, benefits, and alternatives have been discussed and questions answered. Patient agrees to proceed with procedure.
[2022-01-11] MEDS: ceFAZolin 2 GM/D5W 50 ML 2 GM/50 ML BAG IVPB (07:26)
--- NOTE | 2022-01-11 08:34 | PM.OBPRVD ---
OB - Delivery Note Procedure Delivery date: 01/11/22 Procedure: Procedures Operation Date: 01/11/22 07:30 <No data on this case meets the specified criteria> Events: Previous Delivery Route of delivery: Quantitative Blood Loss (ml): 285 Anesthesia type: Spinal Disposition: Floor Baby Date of : 01/11/22 Time of : 07:54 Weeks of gestation at delivery: 39 (.2) Infant gender: Male Weight (pounds): 9 Weight (ounces): 6 presentation: vertex position: Left Occiput Transverse Placenta delivery description: Expressed Cord Vessel Description: 3 Vessels score one minute: 9 score five minutes: 9 Narrative: She was counseled on all risks and benefits in detail. She was taken to the operating room where spinal was placed. She was then prepped and draped in the normal sterile fashion. She received 2g Ancef and a time out was performed. A Pfannenstiel incision was made in the skin and carried down to the underlying fascia, some adhesions were noted. The fascia was nicked on either side of the midline and the fascial incision was extended laterally and superiorly. The fascia was then elevated and the underlying rectus muscles were dissected off the fascia, superiorly and inferiorly. The rectus muscles were then in the midline and the peritoneum was entered bluntly. Once adequate exposure was obtained, a Mobius self retractor was placed within the abdomen. A bladder flap was created. A low transverse incision was made on the lower uterine segment and clear fluid was noted. The occiput was brought to the hysterotomy and the head was easily delivered. The shoulder and body then followed without complications. The infant had spontaneous cry and the mouth and nose were bulb suctioned. The cord was clamped and cut and the was handed off to the awaiting pediatric nurse. A segment of the cord was collected for cord gases. The remaining cord blood was collected for typing. With pitocin infusing, the placenta delivered with gentle traction on the cord without complications. The uterus was then cleared out of all clots and debris using a clean, moist lap. The hysterotomy was then repaired in a running, interlocking fashion using 0 Vicryl. A second layer imbricating suture was then made using 0 Vicryl. The hysterotomy was found to be hemostatic and good uterine tone was noted. The bilateral adnexa were examined and found to be normal. The pelvis was cleared of all clots and fluid. The Mobius retractor was removed from the abdomen. The peritoneum, muscle, and fascia were examined and made hemostatic with bovie cautery. The fascia was then repaired using a 0 Vicryl suture in a running fashion. The subcutaneous tissue was then irrigated and made hemostatic with bovie cautery. The subcutaneous tissue was then reapproximated using 2-0 Vicryl. The skin was then closed using 4-0 Monocryl in a running subcuticular fashion. Sponge, lap, needle and instrument counts were correct at the end of the procedure x2. The patient tolerated the procedure well and was taken to recovery in a stable condition. [facility] Delivery Billing Delivery Delivery: Delivery Charge
[2022-01-11] MEDS: OXYTOCIN 30 UNITS/NS 500 ML 30 UNITS/500 ML BAG 125 UNITS IV CONT (09:40)
[2022-01-11] MEDS: KETOROLAC 30 MG/ML VIAL (*BKC) IV PUSH ×2 (13:01→22:58)
[2022-01-11] MEDS: DEXTROSE 5%/0.45% SOD CHL 1,000 ML 125 ML IV CONT (14:00)
[2022-01-12 04:56] VITALS: BP 119/77; PULSE 82; RESP 14; TEMP 36.9; O2SAT 98
[2022-01-12 05:13] LABS: Basophils Percent Auto 0.3 % (0.2-1.2); Eosinophils Absolute Auto 0.1 K/mm3 (0-0.3); Eosinophils Percent Auto 1.2 % (0-4.4); Hematocrit 29.6 % (37.0-47.0); Hemoglobin 8.9 g/dL (12.0-15.0); Immature Granulocyte Absolute 0.07 K/mm3 (0.00-0.031); Immature Granulocyte Percent A 0.6 % (0-0.5); Lymphocytes Absolute Auto 1.31 K/mm3 (0.9-3.2); Lymphocytes Percent Auto 11.4 % (18.3-44.2); Mean Corpuscular HGB Conc 30.1 g/dl (32-36); Mean Corpuscular Hemoglobin 24.7 pg (26-34); Mean Corpuscular Volume 82.2 fl (80-100); Mean Platelet Volume 10.4 fl (7.4-10.4); Monocytes Percent Auto 8.8 % (2.6-8.5); Neutrophils Absolute Auto 8.9 K/mm3 (1.3-6.7); Neutrophils Percent Auto 77.7 % (45.5-73.1); Platelet Count Result 229 k/mm3 (150-375); Red Cell Distribution Width 14.2 % (11.5-14.5); White Blood Count 11.5 K/mm3 (4.5-10.0)
--- NOTE | 2022-01-12 07:09 | WPDANLDNPN2 ---
Anes-Prog Note L&D-Neuraxial Date/Time: 01/12/22 07:09 Neuraxial medications: intrathecal PF morphine Opiod-related complaints: none Patient feedback: Patient satisfied with post-operative pain management.
--- NOTE | 2022-01-12 07:09 | WPDANLDPN2 ---
Anes-Prog Note L&D Date/Time: 01/12/22 07:09 Comfortable throughout: section Neuraxial method: spinal Epidural/Spinal procedure site: clean & non-tender Neuro status: Neuro function grossly intact. Cardiovascular status: normal Respiratory status: normal Airway patency: baseline Mental status: baseline Post-Op hydration status: normal Vital Signs: Last Vital Signs Temp 36.9 C 01/12/22 04:56 Pulse 82 01/12/22 04:56 Resp 14 01/12/22 04:56 BP 119/77 01/12/22 04:56 Pulse Ox 98 01/12/22 04:56 O2 Del Method Room Air 01/11/22 15:00 Pain score (VAS): 2 I/O: Intake & Output 01/11/22 01/11/22 01/12/22 15:59 23:59 07:59 Intake Total 510 2000 700 Output Total 510 1050 1250 Balance 0 950 -550 Patient feedback: Patient satisfied with anesthetic care.
--- NOTE | 2022-01-12 07:42 | P.PNOB_ITS ---
OB - PN: Subj Subjective Date/time seen: 01/12/22 07:30 Narrative: POD#1 Reyna reports doing well today. 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 Her pain is controlled with PO meds. She is tolerating regular diet. She has not passed gas, but hears her stomach moving. Her zhong is still in place, draining yellow urine, so she has not ambulated. She denies any issues with her incision. She is breast feeding. She would like her son circumcised. OB - PN: Obj Data Labs CBC & Chem 7: 01/12/22 04:46 Labs: Laboratory Results - last 24 hr 01/12/22 04:46 WBC 11.5 H RBC 3.60 L Hgb 8.9 L Hct 29.6 L MCV 82.2 MCH 24.7 L MCHC 30.1 L RDW 14.2 Plt Count 229 MPV 10.4 Immature Gran % (Auto) 0.6 H Neut % (Auto) 77.7 H Lymph % (Auto) 11.4 L [place] % (Auto) 8.8 H Eos % (Auto) 1.2 Baso % (Auto) 0.3 Lymph # (Auto) 1.31 [place] # (Auto) 1.0 H Eos # (Auto) 0.1 Baso # (Auto) 0.0 Abs Immat Gran (auto) 0.07 H Absolute Neuts (auto) 8.9 H Absolute Nucleated RBC 0.0 Nucleated RBC % 0.0 OB - PN A/P Assessment and Plan (1) S/P repeat low transverse : Code(s): Z98.891 - History of uterine scar from previous surgery Status: Acute Plan day: 1 Plan: routine care Comments: - Remove zhong, if no spontaneous void in 6 hours, zhong to be replaced - Pain meds PRN - Regular diet - Stay hydrated - Continue q2-3h - Ambulation Time Spent With Patient Time: Total time spent is greater than 50% in coordination of care (as documented) at patient's floor/unit and/or counseling patient: Review of Systems Constitutional: Constitutional: Denies chills, Denies fever(s) and Denies headache(s) Eyes: Eyes: Denies change in vision ENT: Denies dizziness and Denies headache(s) Cardiovascular: Cardiovascular: Denies chest pain, Denies palpitations and Denies dyspnea Respiratory: Respiratory: Denies cough and Denies dyspnea Gastrointestinal: Gastrointestinal: Denies nausea and Denies vomiting Genitourinary: Comments: normal bleeding Neurologic: Denies dizziness and Denies headache(s) Endocrine: Endocrine: Denies palpitations Exam Const: General: cooperative, healthy appearing, comfortable and no acute distress Orientation/consciousness: patient oriented x3 Resp: Effort & Inspection: normal respiratory effort Auscultation: clear to auscultation bilaterally Cardio: Rate: regular rate GI: Inspection: non-distended and incision (covered with clean dressing) GI Palp: Yes abdominal tenderness (appropriate) and Yes Soft to palpation Auscultation: normal bowel sounds : Other: fundus firm Urinary Catheter: Urinary Catheter: patent and draining Skin: General skin exam: normal color Neuro: General: patient oriented x3 Extrem: General: normal to inspection Psych: Appearance: grossly normal Affect: normal affect Attitude: cooperative
[2022-01-12 08:10] VITALS: BP 113/78; PULSE 88; RESP 18; TEMP 36.3; O2SAT 100
[2022-01-12] MEDS: IBUPROFEN 600 MG TABLET PO ×2 (09:11→15:38)
[2022-01-12] MEDS: SIMETHICONE 80 MG TAB.CHEW PO (09:11)
[2022-01-12] MEDS: HYDROcodone/acetaminophen (*CRX) 5-325 MG TABLET 1 TAB PO ×2 (09:12→15:37)
[2022-01-12] MEDS: MULTIVIT/MIN/PREN/FOL AC/IRON TABLET 1 TAB PO (09:13)
[2022-01-12] MEDS: DOCUSATE SODIUM 100 MG CAPSULE PO ×2 (09:13→15:38)
[2022-01-12] MEDS: POLYSACCHARIDE IRON COMPLEX 150 MG CAPSULE PO ×2 (09:18→15:37)
[2022-01-12 09:30] VITALS: PULSE 88; RESP 18; O2SAT 100
--- NOTE | 2022-01-12 14:13 | PC.NURSE ---
[id number] Mother verbalizes she is able to independently latch with appropriate positioning/alignment at 1200- 1220. She denies any nipple discomfort and is responsively . Infant is currently meeting outcomes for weight, output, jaundice and feeding frequencies of 8-12 times in 24 hours. Mother declines any additional assistance/education at this time but gave consent to work with RN to assess the latch to her left breast. RN changed a large transitional stool diaper, then place infant skin to skin with mother. Assisted mother with a few attempts to the left breast using the football positioning to obtain an optimal latch. Mother voiced understanding of waiting for the big, wide open gape, how to watch and listen for swallowing at the breast (rocking motion) vs piston sucking (non-nutritive sucking). Infant latched to the left breast effectively and mother denies discomfort. Mother is encouraged to call for assistance if her infant doesn?t latch or there is discomfort with latching. Mother voiced understanding of information shared and mom and baby guide reviewed for additional resource information . Reported to the primary RN.
[2022-01-12 15:45] VITALS: BP 118/74; PULSE 88; RESP 16; TEMP 36.9; O2SAT 97
[2022-01-12 19:35] VITALS: BP 114/72; PULSE 88; RESP 14; TEMP 36.7; O2SAT 100
[2022-01-13 08:10] VITALS: BP 122/79; PULSE 95; RESP 16; TEMP 36.6; O2SAT 100
[2022-01-13] MEDS: IBUPROFEN 600 MG TABLET PO (08:46)
[2022-01-13] MEDS: POLYSACCHARIDE IRON COMPLEX 150 MG CAPSULE PO (08:46)
[2022-01-13] MEDS: MULTIVIT/MIN/PREN/FOL AC/IRON TABLET 1 TAB PO (08:46)
[2022-01-13] MEDS: DOCUSATE SODIUM 100 MG CAPSULE PO (08:47)
--- NOTE | 2022-01-13 13:45 | PM.OBPNVD ---
OB - PN: Subj Subjective Date/time seen: 01/13/22 13:35 Narrative: POD#2 Princess reports doing well today. Her bleeding is light. Her pain is controlled with PO meds. She is tolerating regular diet, voiding, passing gas, had a BM, and ambulating without issues. She denies any issues with her incision. She is breast feeding. She would like to go home today. OB - PN: Obj Data Labs CBC & Chem 7: 01/12/22 04:46 OB - PN A/P Assessment and Plan (1) S/P repeat low transverse : Code(s): Z98.891 - History of uterine scar from previous surgery Status: Acute Plan day: 2 Plan: routine care and discharge home (today) Comments: - Pelvic rest; take meds as prescribed - Incision care/no heavy lifting - ER return precautions: fever, n/v/abd pain, bleeding, HTN Time Spent With Patient Time: Total time spent is greater than 50% in coordination of care (as documented) at patient's floor/unit and/or counseling patient: Review of Systems Constitutional: Constitutional: Denies chills, Denies fever(s) and Denies headache(s) Eyes: Eyes: Denies change in vision ENT: Denies dizziness and Denies headache(s) Cardiovascular: Cardiovascular: Denies chest pain, Denies palpitations and Denies dyspnea Respiratory: Respiratory: Denies cough and Denies dyspnea Gastrointestinal: Gastrointestinal: Denies nausea and Denies vomiting Genitourinary: Comments: normal bleeding Neurologic: Denies dizziness and Denies headache(s) Endocrine: Endocrine: Denies palpitations Exam Const: General: cooperative, comfortable and no acute distress Orientation/consciousness: patient oriented x3 Resp: Effort & Inspection: normal respiratory effort Auscultation: clear to auscultation bilaterally Cardio: Rate: regular rate GI: Inspection: non-distended and incision (covered with clean dressing) GI Palp: Yes abdominal tenderness (appropriate) and Yes Soft to palpation Auscultation: normal bowel sounds : Other: fundus firm Skin: General skin exam: normal color Neuro: General: patient oriented x3 Extrem: General: normal to inspection Psych: Appearance: grossly normal Affect: normal affect Attitude: cooperative
--- NOTE | 2022-01-14 11:28 | PM.OBDSVD ---
DS: Admitting Diagnosis Discharge Date 01/13/22 Admitting Diagnosis Previous section DS: Discharge Diagnosis Discharge Diagnosis (1) S/P repeat low transverse : Code(s): Z98.891 - History of uterine scar from previous surgery Status: Acute OB - DS: Summary OB Procedures : Ultrasound OB Procedures Intrapartum: low cervical, transverse OB Procedures: : None Peripartum Data Infant Delivery Method: Section Procedures: Procedures Operation Date: 01/11/22 07:30 Actual Procedure Side Surgeon p Section Janie Carlton MD complications: none [place] 1: Gender: Male Disposition of : home Status at Discharge Functional status at discharge: independent ambulation Overall status at discharge: patient is back to baseline Time Spent with Patient Time attestation: Total time spent providing and/or coordinating discharge services: Time spent: Less than 30 minutes Exam Const: General: cooperative, comfortable and no acute distress Nutritional Appearance: obese Orientation/consciousness: patient oriented x3 Resp: Effort & Inspection: normal respiratory effort Auscultation: clear to auscultation bilaterally Cardio: Rate: regular rate GI: Inspection: non-distended and incision (covered with clean dressing) GI Palp: No abdominal tenderness and Yes Soft to palpation Auscultation: normal bowel sounds : Other: fundus firm Skin: General skin exam: normal color Neuro: General: patient oriented x3 Extrem: General: normal to inspection Psych: Appearance: grossly normal Affect: normal affect Attitude: cooperative Discharge Plan Discharge Attending physician on discharge: Janie Carlton Discharging Clinician: Janie Carlton Anticipated Discharge Date/Time: 01/13/22 17:00 Patient Disposition: Home, Self-Care Activity: may shower, may drive after 2 weeks and pelvic rest Diet: regular and other - see discharge instructions Discharge Instructions: Education: Mom and Baby Guide Given to: Mother Follow-Up: Call your delivering provider's office for an appointment to be seen in: 4 Weeks Mom and baby should come to the [facility] for the follow-up appointment. Appointment Date/Time: January 15, 2022 at 8:00 am What to expect at your follow-up visit: Blood Pressure Check Physical Assessment Call [phone] if you are unable to keep your appointment time. BREAST CARE: * Wear a snug supportive bra. * For engorgement discomfort: Breast Feeding: * Apply warm moist washcloths * Express milk as needed to relieve engorgement * Wear loose clothing Bottle Feeding: * May apply ice packs * For sore nipples: * Identify correct latch-on * Apply warm moist washcloths before and after nursing * Air dry nipples after nursing * May apply Lansinoh cream to nipples ABDOMINAL INCISION: (if applicable) * Allow incision to air dry * Do NOT use lotions for powders on your incision * When showering, allow soap and water to run over the incision, but do not wash incision EPISIOTOMY/PERINEAL CARE: * Until bleeding stops, use your darian bottle after urinating * Change your pad frequently throughout the day * You may take sitz baths several times a day (fill your bathtub with warm water and soak for 20 minutes.) Do NOT bathe in the water * No tub baths until seen by your physician - You may shower ACTIVITY: * Rest as much as possible. * Do not exercise or lift anything heavier than your baby (such as laundry or other children.) * Avoid stairs or driving as much as possible. * Do not put anything into the vagina. No douching, tampons, or sexual activity until seen by physician. NOTIFY PHYSICIAN IF YOU HAVE ANY QUESTIONS OR IF ANY OF THE FOLLOWING SYMPTOMS OCCUR: * If your episiotomy or incision becomes red, swollen,
[2022-01-15 08:27] VITALS: BP 133/80; PULSE 99; RESP 18; TEMP 36.8; O2SAT 99
== END 2022-01-13 17:20 | disposition home or self-care (01) | DRG 788 ==
LOC: ANHLDR 05:25 → ANHOB2 10:51
PROVIDERS: Admitting Provider Obstetrics & Gynecology; PCP Nurse Practitioner Adult Health; Visit Provider Obstetrics & Gynecology
PROC: 10D00Z1 Extraction of Products of Conception, Low, Open Approach (ICD-10-PCS; CPT 59514; principal; 2022-01-11 07:30)
DX: O34.211 Maternal care for low transverse scar from previous cesarean delivery (principal); Z37.0 Single live birth; Z3A.39 39 weeks gestation of pregnancy
CPT/HCPCS: 36415; 85025; 85027; A9270; J0131; J0690; J1885; J2274; J2590; J7120

== ENCOUNTER 2024-01-27 08:23 | Emergency (ER) | payer OTHER, SELFPAY ==
[2024-01-27 08:32] VITALS: BP 131/91; PULSE 81; RESP 16; TEMP 36.5; O2SAT 98
--- NOTE | 2024-01-27 09:31 | ED.URI ---
HPI - URI/Sore Throat General Chief Complaint: Upper Respiratory Infection Stated Complaint: SINUS CONGESTION/EARACHE/CLOGGED Time Seen by Provider: 01/27/24 09:00 Source: patient and RN notes reviewed Mode of arrival: ambulatory Limitations: no limitations History of Present Illness HPI Narrative: Patient presents today with a 3 week history of nasal congestion and sinus pressure, mild cough, and left ear muffling. She has been taking ibuprofen with little relief. 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 Related Data Allergies Allergy/AdvReac Type Severity Reaction Status Date / Time No Known Allergies Allergy Verified 09/01/23 08:04 Review of Systems Review of Systems: CONSTITUTIONAL: Denies body aches, fever, chills, or sweats. EYES: Denies visual changes, redness, or discharge. ENT: Denies rhinorrhea, sore throat, or otalgia.+ nasal congestion, sinus pressure, left ear muffling CARDIOVASCULAR: Denies chest pain, palpitations, or edema. RESPIRATORY: Denies dyspnea.+ cough GASTROINTESTINAL: Denies abdominal pain, nausea, vomiting, or diarrhea. GENITOURINARY: Denies dysuria or hematuria. SKIN: Denies rash, itching, or wounds. MUSCULOSKELETAL: Denies back pain, joint pain, or myalgia. NEUROLOGIC: Denies headache, numbness, tingling, or weakness. PSYCH: Denies depression or anxiety. [facility] Past Medical History Medical History Anxiety Surgical History Surgical History Delivery by section (~12/04/19) 11/2019 History of photorefractive keratectomy Family History Family History Sibling Oral cancer Hypertension Depression Mother Thyroid cancer Pancreatic mass Pancreatic cancer Father Brain cancer Social History Social History Smoking status: Never smoker Second hand tobacco smoke exposure: No Alcohol intake: former Substance use: never Do You Feel Safe in your Home?: Yes Lack of Transportation: No Lack of Food: Never True Difficulty Paying Gas/Electric Bills: Decline to Answer Difficulty Paying for Meds: Decline to Answer Currently Unemployed: Decline to Answer Education: High School Diploma/GED Living arrangements: with family Occupation/Education: occupation 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 Please see nursing chart for further information. There is no relevant family history pertinent to the presenting complaint Exam Narrative: GENERAL: Well-appearing, well-nourished, and in no acute distress. HEAD: Normocephalic, atraumatic. EYES: EOMI. No redness or drainage. Conjunctivae normal. ENT: Mucous membranes pink and moist. Nares congested. Bilateral maxillary sinus tenderness. No frontal sinus tenderness. No rhinorrhea. Right TM normal. Left TM erythematous and bulging. Throat normal. Uvula midline. NECK: Normal AROM. Supple. No lymphadenopathy. CHEST: No respiratory distress. Clear to auscultation. HEART: Regular rate and rhythm. No murmur appreciated. EXTREMITIES: Normal range of motion. No edema. SKIN: Warm, dry, no rash. Capillary refill normal. Normal skin turgor. NEURO: No focal deficits. Alert and oriented x3. Gait steady. PSYCH: Normal affect. No signs of depression or anxiety. Course Course Level of Care: Express Care Visit Vital Signs Vital signs: Vital Signs Temperature 97.7 F 01/27/24 08:32 Pulse Rate 81 01/27/24 08:32 Respiratory
== END 2024-01-27 09:19 | disposition home or self-care (01) ==
PROVIDERS: Emergency Provider Nurse Practitioner; PCP Nurse Practitioner
DX: J32.9 Chronic sinusitis, unspecified (principal)
CPT/HCPCS: 99213; G0463

== ENCOUNTER 2024-04-03 08:16 | Outpatient (CLI) | payer OTHER, SELFPAY ==
[2024-04-03 13:10] LABS: Alanine Aminotransferase 20 U/L (6-35); Albumin Level 4.5 g/dL (3.5-5.1); Alkaline Phosphatase 84 U/L (38-126); Anion Gap 9 mmol/L (4-12); Aspartate Amino Transferase 34 U/L (14-36); Bilirubin,Total 0.7 mg/dL (0.2-1.3); Blood Urea Nitrogen 13 mg/dL (7-17); Calcium 8.9 mg/dL (8.4-10.2); Carbon Dioxide 26 mmol/L (22-30); Chloride 102 mmol/L (98-107); Cholesterol 221 mg/dL (0-200); Estimated Glomerular Filt Rate > 60; Glucose 86 mg/dL (65-110); HDL Direct 82 mg/dL; Sodium 137 mmol/L (137-145); Triglycerides 100 mg/dL (<150)
[2024-04-03 13:21] LABS: LDL Cholesterol Direct 111 mg/dL
[2024-04-03 13:26] LABS: Beta HCG Quantitative < 2.39 mIU/ML
[2024-04-03 13:29] LABS: Basophils Percent Auto 0.8 % (0.2-1.2); Eosinophils Absolute Auto 0.2 K/mm3 (0-0.3); Eosinophils Percent Auto 3.6 % (0-4.4); Hematocrit 38.9 % (37.0-47.0); Immature Granulocyte Absolute 0.01 K/mm3 (0.00-0.031); Immature Granulocyte Percent A 0.2 % (0-0.5); Lymphocytes Absolute Auto 1.53 K/mm3 (0.9-3.2); Mean Corpuscular HGB Conc 30.8 g/dl (32-36); Mean Corpuscular Hemoglobin 25.9 pg (26-34); Mean Platelet Volume 10.2 fl (7.4-10.4); Monocytes Absolute Auto 0.3 K/mm3 (0.1-0.6); Monocytes Percent Auto 6.3 % (2.6-8.5); Neutrophils Absolute Auto 3.2 K/mm3 (1.3-6.7); Neutrophils Percent Auto 60.1 % (45.5-73.1); Platelet Count Result 318 k/mm3 (150-375); Red Blood Count 4.63 M/mm3 (4.2-5.4); Red Cell Distribution Width 14.6 % (11.5-14.5); White Blood Count 5.3 K/mm3 (4.5-10.0)
[2024-04-03 14:42] LABS: Vitamin D 25 Hydroxy 21.4 ng/mL
[2024-04-03 14:44] LABS: Iron 59 ug/dL (37-170)
[2024-04-03 14:57] LABS: Percent Iron Saturation 10 % (20-50)
[2024-04-03 15:18] LABS: Ferritin 7.33 ng/mL (6.24-137)
[2024-04-05 10:47] LABS: DHEA-Sulfate 95 mcg/dL (19-237); Prolactin 27.1 ng/mL
[2024-04-05 10:59] LABS: Progesterone <0.5 ng/mL
== END 2024-04-03 08:17 | disposition home or self-care (01) ==
LOC: ANHGOSHLAB 08:17
PROVIDERS: PCP Nurse Practitioner; Visit Provider Obstetrics & Gynecology
DX: N92.0 Excessive and frequent menstruation with regular cycle (principal); N93.9 Abnormal uterine and vaginal bleeding, unspecified; F41.9 Anxiety disorder, unspecified; Z13.220 Encounter for screening for lipoid disorders; Z13.21 Encounter for screening for nutritional disorder
CPT/HCPCS: 36415; 80053; 80061; 82306; 82627; 82670; 82728; 83498; 83540; 83550; 84144; 84146; 84443; 84702; 85025

== ENCOUNTER 2024-04-03 12:50 | Outpatient (CLI) | payer OTHER, SELFPAY ==
--- NOTE | ~2024-04-03 | US_ITS ---
EXAMINATION: US pelvic complete w TV INDICATION: Excessive and frequent menstruation Comparison:Ultrasound dated 04/13/2019 TECHNIQUE: Multiple transabdominal and endovaginal sonographic images of the pelvis performed. FINDINGS: The uterus measures 6 x 4.9 x 3.9 cm. There is a 1 cm nabothian cysts. The endometrial comp mary measures 5 mm. The right ovary measures 2.4 x 1.2 x 1.6 cm and the left ovary measures 2.7 x 2.9 x 2 cm. Right ovary is within normal limits without significant mass. Left ovary contains a hyperechoic 1.5 cm mass, lik janett benign dermoid. There is also a calcified mass measuring 2 cm in the left adnexa. There are small follicles in each ovary. Normal doppler signal in both ovaries. There is no free fluid in the pelvis. There are no abnormal masses seen on either side. IMPRESSION: 1. Hyperechoic 1.5 cm left ovarian mass, likely a dermoid. Left adnexal mass appears calcified measur ing 2 cm, indeterminate and not well visualized. Consider correlation with CT of the pelvis with cont rast. Reviewed, dictated and finalized at location B. IMPRESSION: 1. Hyperechoic 1.5 cm left ovarian mass, likely a dermoid. Left adnexal mass ap pears calcified measuring 2 cm, indeterminate and not well visualized. Consider correlation with CT of the pelvis with contrast.
== END 2024-04-03 12:51 | disposition home or self-care (01) ==
PROVIDERS: PCP Nurse Practitioner; Visit Provider Obstetrics & Gynecology
DX: N92.0 Excessive and frequent menstruation with regular cycle (principal); N93.9 Abnormal uterine and vaginal bleeding, unspecified; N83.202 Unspecified ovarian cyst, left side
CPT/HCPCS: 76830; 76856

== ENCOUNTER 2025-02-16 10:36 | Emergency (ER) | payer OTHER, SELFPAY ==
--- NOTE | ~2025-02-16 | XR_ITS ---
EXAMINATION: XR foot RT min 3V DATE: 02/16/2025 11:00 INDICATION: Right foot pain after climbing [place] 3 weeks prior TECHNIQUE: Dorsoplantar, two oblique and lateral views of the right foot were obtained. COMPARISON: None. FINDINGS: Nondisplaced oblique fracture at the proximal metadiaphyseal region of the right fifth metatarsal located 2 cm from the proximal articular surface. There is 10 degrees medial angulation. Fracture appears subacute with minimal nonbridging callus formation along the lateral margin of the fracture. No other fractures identified. Joint spaces are normal. Mild soft tissue swelling along the lateral forefoot centered over the fracture. IMPRESSION: 1. 10 degrees medial angulation of a nondisplaced subacute extra-articular fracture at the right fifth metatarsal (Bejarano fracture) with minimal early nonbridging callus formation. Reviewed, dictated and finalized at location A. IMPRESSION: 1. 10 degrees medial angulation of a nondisplaced subacute extra-articular frac ture at the right fifth metatarsal (Bejarano fracture) with minimal early nonbridg ing callus formation.
[2025-02-16 10:46] VITALS: BP 141/92; PULSE 95; RESP 18; TEMP 35.7; O2SAT 100
--- NOTE | 2025-02-16 11:16 | ED_ITS ---
HPI - Extremity Injury (Lower) General Chief Complaint: Extremity Injury, Lower Stated Complaint: INJURED R FOOT Source: patient Mode of arrival: ambulatory Limitations: no limitations History of Present Illness HPI Narrative: 39 y/o female presented for c/o right foot pain and swelling for 3 weeks. States she stepped off of a bed when using it as a ladder, and landed wrong, and had swelling and large amount of bruising since then. Says these symptoms have subsided but the pain has persisted. Pain is better when wearing sneakers. Rates pain 08/20/ Related Data Home Medications ?Medication ?Instructions ?Recorded ?Confirmed ?Last Taken ?Type multivitamin 1 tablet PO DAILY 09/11/24 0 02/16/25 Unknown History Allergies Allergy/AdvReac Type Severity Reaction Status Date / Time No Known Allergies Allergy Verified 02/16/25 10:49 Review of Systems Review of Systems: CONSTITUTIONAL: Denies body aches, fever, chills EYES: Denies visual changes ENT: Denies rhinorrhea, congestion CARDIOVASCULAR: Denies chest pain, palpitations, or edema. RESPIRATORY: Denies cough or dyspnea. SKIN: Denies rash MUSCULOSKELETAL: reports right foot pain NEUROLOGIC: Denies headache, numbness, tingling, or weakness. All systems reviewed & are unremarkable except as noted in HPI and below PMFSH Past Medical History Medical History Anxiety Surgical History Surgical History History of photorefractive keratectomy Delivery by section (~12/04/19) 11/2019 Family History Family History Sibling Oral cancer Hypertension Depression Mother Thyroid cancer Pancreatic mass Pancreatic cancer Father Brain cancer Social History Social History Smoking status: Never smoker Second hand tobacco smoke exposure: No Alcohol intake: former Substance use: never Do You Feel Safe in your Home?: Yes Lack of Transportation: No Lack of Food: Never True Current Housing: Decline to Answer Concerned About Future Housing: Decline to Answer Difficulty Paying Gas/Electric Bills: Decline to Answer Difficulty Paying for Meds: Decline to Answer Currently Unemployed: Decline to Answer Education: Decline to Answer Difficulty w/ Childcare or Family Care: Decline to Answer Living arrangements: with family Occupation/Education: occupation 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 Please see nursing chart for further information. There is no relevant family history pertinent to the presenting complaint Exam Narrative: GENERAL: Well-appearing, well-nourished, and in no acute distress. CHEST: Speaks in full sentences. No respiratory distress. HEART: Regular rate and rhythm. Normal and equal peripheral pulses. EXTREMITIES: Right lateral foot swelling, tender with palpation over the 5th metatarsal. No bruising. Foot has normal strength and sensation, normal range of motion but endorses pain to lateral foot with ankle flexion. No open wounds, pulse palpable and equal bilaterally, skin warm, dry, pink. Capillary refill less than 3 seconds. SKIN: Warm, dry, no rash. NEURO: Alert and oriented x3. PSYCH: Normal mood and affect Course Course Emergency Course: Patient is aware of diagnosis, understands and agrees to treatment plan. Anticipatory guidance given. Patient agrees to follow-up as directed and is aware of reasons to seek care at the emergency department. Portions of this record may have been created with voice recognition software Level of Care: Express Care Visit Vital Signs Vital signs: Vital Signs Temperature 96.2 F L 02/16/25 10:46 Pulse Rate 95 02/16/25 10:46 Respiratory Rate 18 02/16/25 10:46 Blood Pressure 141/92 H 02/16/25 10:46 Pulse Oximetry 100 02/16/25 10:46 Oxygen Delivery Room Air 02/16/25 10:46 Temperature 96.2 F L 02/16/25 10:46 Pulse Rate 95 02/16/25 10:46 Respiratory Rate 18 02/16/25 10:46 Blood Pressure 141/92 H 02/16/25 10:46 Pulse Oximetry 100 02/16/25 10:46 Oxygen Delivery Room Air 02/16/25 10:46 Reviewed MDM - Extremity Injury (Lower) MDM Narrative Medical decision making narrative: Discussed physical exam findings and results of x-ray. Patient says she will utilize her friend the walking boot and follow-up with aviation medicine specialist. Advised supportive measures and signs/symptoms to go to the ER. Pt is appropriate for outpt treatment and f/u. Differential Diagnosis Differential diagnosis: Likely other (Plantar fasciitis, heel spur, foot strain/sprain, metatarsal fracture, metatarsalgia, moreland's neuroma) Imaging Data Radiologist's impression: Patient: Reyna Milian : 1985 MR#: [id number] Age: 39 Acct:[id number] Loc: [facility] ADM Date: 02/16/25Attending Dr: EXAMINATION: XR foot RT min 3V DATE: 02/16/2025 11:00 INDICATION: Right foot pain after climbing [place] 3 weeks prior TECHNIQUE: Dorsoplantar, two oblique and lateral views of the right foot were obtained. COMPARISON: None. FINDINGS: Nondisplaced oblique fracture at the proximal metadiaphyseal region of the right fifth metatarsal located 2 cm from the proximal articular surface. There is 10 degrees medial angulation. Fracture appears subacute with minimal nonbridging callus formation along the lateral margin of the fracture. No other fractures identified. Joint spaces are normal. Mild soft tissue swelling along the lateral forefoot centered over the fracture. IMPRESSION: 1. 10 degrees medial angulation of a nondisplaced subacute extra-articular fracture at the right fifth metatarsal (Bejarano fracture) with minimal early nonbridging callus formation. Discharge Plan Discharge Clinical Impression: Foot fracture, right Patient Disposition: Home Condition: Stable Instructions: Antibiotic Form, Foot Fracture in Adults (ED) Additional Instructions: Please follow up with aviation medicine specialist, call Tuesday to schedule an appointment. Rest, ice and elevate the foot Motrin 600mg every 8 hours, as needed, for pain (take with food). Tylenol 1000mg every 8 hours. Wear a walking boot until cleared by aviation medicine specialist. Go to the ER immediately for increased pain, tingling/numbness, swelling, redness, etc Follow up with Orthopedic Surgery Patient Language: Yemeni Prescriptions: No Action multivitamin Tablet 1 tablet PO DAILY sertraline 25 mg tablet 25 mg PO DAILY Qty: 90 1RF Follow-up/Referrals: Benoit Gillette MD [Physician, Orthopedics] Referral Note: 10 degrees medial angulation of a nondisplaced subacute extra- articular fracture at the right fifth metatarsal (Bejarano fracture) with minimal early nonbridging callus formation. Louann Lamb, [employer] [Primary Care Provider, Internal Medicine] Time of Disposition: 12:17
== END 2025-02-16 12:26 | disposition home or self-care (01) ==
PROVIDERS: Emergency Provider Nurse Practitioner Family; PCP Nurse Practitioner
DX: S92.354A Nondisplaced fracture of fifth metatarsal bone, right foot, initial encounter for closed fracture (principal); X50.0XXA Overexertion from strenuous movement or load, initial encounter
CPT/HCPCS: 73630; 99213; G0463